=== PATIENT | male | born 1980 | race Caucasian/White ===

== ENCOUNTER 2019-04-22 10:54 | Emergency (ER) | payer SELFPAY ==
[2019-04-22] MEDS: KETOROLAC 30 MG INJ IM (11:41)
[2019-04-22] MEDS: CEFTRIAXONE 1 GM INJ IM (12:43)
[2019-04-22] MEDS: LIDOCAINE 1% (MPF) 5 ML VIAL INJ (12:43)
== END 2019-04-22 13:30 | disposition home or self-care (01) ==
LOC: FTE 13:30
DX: L03.115 Cellulitis of right lower limb (principal)
CPT/HCPCS: 93971; 96372; 99285-25